=== PATIENT | male | born 1955 | race Caucasian/White ===

== ENCOUNTER → 2020-02-16 | Outpatient (CLI) | payer OTHER, MEDICAID ==
[2018-01-05 13:17] VITALS: BP 114/61
[~2020-02-16] MED LIST: ASPI325T11 PO; ASPI81TA50 PO; ATOR40TA59 PO; CYCL10TA2 PO; FLUO20CA20 PO; GABA600T7 PO; LISI-130 PO; LISI-334 PO; MORP-15 PO; OXYC1TAB22 PO
--- NOTE | 2020-02-16 11:27 | KCIC ---
KNEE RIGHT 3V INDICATION: Right knee pain, slipping injury COMPARISON: None. FINDINGS: No acute appearing fracture or malalignment. Bony growth seen overlying the distal femoral diaphysis, incompletely visualized. Patient also appears to have prior external fixation screw lucency through the proximal tibia. Small suprapatellar joint effusion. Bony mineralization is normal for the patient's age. No significant soft tissue abnormality. No radiopaque foreign body. IMPRESSION: 1. No acute appearing fracture or malalignment. 2. Small suprapatellar joint effusion. 3. Bony growth seen overlying the distal femoral diaphysis, incompletely visualized. On the lateral view, there appears to be angulation and changes that may be consistent with remote injury. Correlate for history of prior femoral fracture. Patient also appears to have prior external fixation screw lucency through the proximal tibia. Electronically signed by: Franklin Mondragon MD (02/16/2020 11:25 AM) [id number]
== END | disposition home or self-care (01) ==
LOC: KCIC 10:19
PROVIDERS: ATTEND Family Medicine
DX: M17.11 Unilateral primary osteoarthritis, right knee (principal); M25.461 Effusion, right knee
CPT/HCPCS: 73562

== ENCOUNTER → 2021-12-20 | Outpatient (CLI) | payer OTHER, MEDICAID ==
[2018-01-05 13:17] VITALS: BP 114/61
[~2021-12-20] MED LIST changes: +CYCL10TA19 PO; -CYCL10TA2 PO; -FLUO20CA20 PO; +FLUO20CA22 PO; -LISI-334 PO; +LISI20TA18 PO
--- NOTE | 2021-12-20 12:35 | KCIC ---
AP and Lateral Views of the Chest 12/20/2021 10:55 AM Indication: 1-2 months of cough. Comparison: Chest radiograph January 03, 2018 Findings: Lung volumes are low augmenting the cardiomediastinal silhouette and pulmonary vasculature. Allowing for this no pneumothorax, effusion, or focal infiltrate is seen. Heart size is within radha l limits. Degenerative changes of the thoracic spine without evidence of acute osseous abnormality. IMPRESSION: Low lung volumes. Otherwise no acute cardiopulmonary process is identified. Electronically signed by: Marck Ramos MD (12/20/2021 12:32 PM) [id number]
== END ==
LOC: KCIC 10:51
PROVIDERS: ATTEND Family Medicine
DX: R05.9 Cough, unspecified (principal); M47.814 Spondylosis without myelopathy or radiculopathy, thoracic region
CPT/HCPCS: 71046

== ENCOUNTER 2022-01-11 11:53 | Emergency (ER) | payer OTHER, MEDICAID ==
[~2022-01-11] VITALS: Ht 185.4 cm; Wt 136.2 kg
[2022-01-11 12:07] VITALS: BP 195/84
--- NOTE | 2022-01-11 12:23 | ED.ADGEN ---
Past Medical History Past Medical History: High Cholesterol, Hypertension, TIA Past Surgical History: Knee Replacement Smoking Status: Never Smoker Alcohol Use: Occasionally Drug Use: None General Adult EDM: Chief Complaint: BACK PAIN OR INJURY HPI: HPI: Patient is a 66-year-old male who arrives ambulatory to the emergency department complaining of lower neck and upper back pain. Patient reportedly fell last Sunday and sustained a small injury to his left lower extremity. He was evaluated and treated at another hospital for this. Patient states initially he fell and landed awkwardly on his back. Patient reports initially he did not think anything of this. Patient states however over the past several days his pain has gotten worse. He reports pain in his lower neck in the midline as well as upper back. Patient already has a history of degenerative disc disease in his back and has concerns he may have injured this even further. Patient also states he has pain in his back at the left side from his fall as well. He states this is very noticeable whenever he takes a deep breath or moves. He denies fevers or cough. He further denies chest pain. Additionally he denies any changes level consciousness. He is awake, alert and nontoxic-appearing. Review of Systems: Review of Systems: Constitutional: Denies fever or chills. [] Eyes: Denies change in visual acuity. [] HENT: Denies nasal congestion or sore throat. [] Respiratory: Denies cough or shortness of breath. [] Cardiovascular: Denies chest pain or edema. [] GI: Denies abdominal pain, nausea, vomiting, bloody stools or diarrhea. [] : Denies dysuria. [] Musculoskeletal: Reports neck and back pain. Denies joint pain. [] Integument: Reports laceration. Denies rash. [] Neurologic: Denies headache, focal weakness or sensory changes. [] Endocrine: Denies polyuria or polydipsia. [] Lymphatic: Denies swollen glands. [] Psychiatric: Denies depression or anxiety. [] Family History: Family History: Noncontributory Current Medications: Current Medications Medications (Trade) Dose Ordered Sig/Melonie Start Time Stop Time Status Last Admin Dose Admin Ibuprofen (Motrin) 600 mg 1X ONCE 01/11/22 13:30 01/11/22 13:31 DC 01/11/22 13:27 600 MG Allergies: Allergies: Allergies Coded Allergies Type Severity Reaction Last Updated Verified Penicillins Allergy Severe Anaphylaxis 01/04/18 Yes Physical Exam: PE: Constitutional: Well developed, well nourished, no acute distress, non-toxic appearance. [] HENT: Normocephalic, atraumatic, bilateral external ears normal, oropharynx moist, no oral exudates, nose normal. [] Eyes: PERRLA, EOMI, conjunctiva normal, no discharge. [] Neck: Tenderness palpation in the midline at the cervicothoracic junction. Normal range of motion, supple, no stridor. [] Cardiovascular:Heart rate regular rhythm, no murmur [] Lungs & Thorax: Bilateral breath sounds clear to auscultation [] Abdomen: Bowel sounds normal, soft, no tenderness, no masses, no pulsatile masses. [] Skin: Warm, dry, no erythema, no rash. [] Back: Tenderness palpation of the upper thoracic musculature as well as spine. No CVA tenderness. [] Extremities: Healing laceration of left lower extremity. No tenderness, no cyanosis, no clubbing, ROM intact, no edema. [] Neurologic: Alert and oriented X 3, normal motor function, normal sensory function, no focal deficits noted. [] Psychologic: Affect normal, judgement normal, mood normal. [] Current Patient Data: Vital Signs: Vital Signs Date Time Temp Pulse Resp B/P (MAP) Pulse Ox O2 Delivery O2 Flow Rate FiO2 01/11/22 12:07 98.3 79 20 195/84 (121) 100 Room Air 98.3 EKG: EKG: [] Heart Score: C/O Chest Pain: No Risk Factors: Risk Factors: DM, Current or recent (<one month) smoker, HTN, HLP, family h istory of CAD, obesity. Risk Scores: Score 0 - 3: 2.5% MACE over next 6 weeks - Discharge Home Score 4 - 6: 20.3% MACE over next 6 weeks - Admit for Clinical Observation Score 7 - 10: 72.7% MACE over next 6 weeks - Early Invasive Strategies Radiology/Procedures: Radiology/Procedures: [][facility] [address] [place] [address] IMAGING REPORT Signed PATIENT: JENNIFER MORGAN ACCOUNT: [id number] : 1955 LOCATION: ER AGE: 66 SEX: M EXAM STATUS: REG ER ORD. PHYSICIAN: NAVDEEP WEATHERS DO REASON: Pain after fall PROCEDURE: CT CHEST WO CONTRAST CT scan of the chest without contrast 01/11/2022 CLINICAL HISTORY: Chest pain post fall. TECHNIQUE: Unenhanced, contiguous, 0.625 mm axial sections were obtained through the chest and upper abdomen. 5 mm reconstructed axial and 5 and 3 mm sagittal and coronal reconstructed images were obtained. One or more of the following individualized dose reduction techniques were utilized for this study: 1. Automated exposure control. 2. Adjustment of the mA and/or kV according to patient size. 3. Use of iterative reconstruction technique. FINDINGS: Comparison is made to PA and lateral chest radiographs dated 12/20/2021. Atherosclerotic calcification of the thoracic aorta and its branches is seen. The thoracic aorta tapers normally. The heart is mildly enlarged. Scattered coronary artery calcifications are seen. No mediastinal hematoma is noted. No hilar, mediastinal or axillary lymphadenopathy is seen. Dependent subsegmental atelectasis is seen involving both lungs. No area of consolidation is noted. No pneumothorax or pleural effusion is seen. Several small nodular opacities are seen involving both lungs which measure 1 to 2 mm in size. They likely represent granulomas. No concerning pulmonary nodule is seen. Images through the upper abdomen demonstrate atherosclerotic calcification of the abdominal aorta. Degenerative changes are seen involving the thoracic spine. The osseous structures are intact. IMPRESSION: No acute abnormality is seen. Electronically signed by: Satinder Rubi MD (01/11/2022 1:34 PM) [id number] [facility] [address] [place] [address] IMAGING REPORT Signed PATIENT: JENNIFER MORGAN ACCOUNT: [id number] : 1955 LOCATION: ER AGE: 66 SEX: M EXAM STATUS: REG ER ORD. PHYSICIAN: NAVDEEP WEATHERS DO REASON: Pain after fall PROCEDURE: CT THORACIC SPINE WO CONTRAST EXAMINATION: CT THORACIC SPINE WO, 01/11/2022 12:50 PM CLINICAL INDICATION: Pain after fall COMPARISON: Chest radiograph 12/20/2021 TECHNIQUE: Helical CT imaging performed of the thoracic spine without the use of intravenous contrast. Sagittal and coronal reformats were obtained. One or more of the following individualized dose reduction techniques were utilized for this examination: 1. Automated exposure control 2. Adjustment of the mA and/or kV according to patient size 3. Use of iterative reconstruction technique. FINDINGS: There is no acute fracture. Alignment is normal. There is mild degenerative disc disease with degenerative endplate changes and bridging lateral osteophytes. This is greatest at T5-T6 through T9-T10. There is no bony canal or foraminal narrowing. The visualized portion of the chest is unremarkable. There is mild calcified atherosclerosis in the aorta. Paraspinous musculature is normal. IMPRESSION: No acute osseous abnormality Electronically signed by: Sumaya Camilo MD (01/11/2022 1:51 PM) [id number] DICTATED and SIGNED BY: SUMAYA CAMILO MD DATE: 01/11/22 1339 [facility] [address] [place] [address] IMAGING REPORT Signed PATIENT: JENNIFER MORGAN ACCOUNT: [id number] : 1955 LOCATION: ER AGE: 66 SEX: M EXAM STATUS: REG ER ORD. PHYSICIAN: NAVDEEP WEATHERS DO REASON: Pain after fall PROCEDURE: CT CERVICAL SPINE WO CONTRAST CT scan of the cervical spine without contrast 01/11/2022 Clinical history: Neck pain post fall. Technique: Unenhanced, contiguous, 0.625 mm axial sections were obtained through the cervical spine. 3 mm reconstructed axial and 3 mm coronal and sagittal reconstructed images were obtained. One or more of the following individualized dose reduction techniques were utilized for this study: 1. Automated exposure control. 2. Adjustment of the mA and/or kV according to patient size. 3. Use of iterative reconstruction technique. Findings: Sagittal and coronal reconstructed images demonstrate slight reversal of the normal cervical lordosis. Degenerative changes consisting of disc space narrowing, vertebral endplate sclerosis and mild to moderate anterior and posterior vertebral body osteophyte formation are seen involving the C5-6 and C6-7 disc spaces. Atherosclerotic calcification is seen in the region of the carotid bifurcations. No fracture or subluxation is of the cervical vertebrae is seen. Degenerative changes are seen involving the uncovertebral and facet joints throughout the cervical disc spaces. Impression: No fracture or subluxation of the cervical vertebra is identified. Electronically signed by: Satinder Rubi MD (01/11/2022 1:52 PM) [id number] DICTATED and SIGNED BY: SATINDER RUBI MD DATE: 01/11/22 [id number] DICTATED and SIGNED BY: SATINDER RUBI MD DATE: 01/11/22 0592 Course & Med Decision Making: Course & Med Decision Making Pertinent Labs and Imaging studies reviewed. (See chart for details) Upon arrival the patient was taken to fast-track room D where he was interviewed and examined. Patient exhibited tenderness of the cervical thoracic region of the spine without tenderness to palpation anywhere else in his back. I did order CT imaging to assess for any spinal injury of the neck or upper back. CT of the chest was ordered as well and only chronic findings were observed. Despite this the patient has been reevaluated and is without any neurological disability. I have advised that he follow-up with his primary care physician in 1 week should he have continued pain. Should he develop any acute motor or sensory deficit, he has been advised to return to the emergency department. The patient understands and has agreed to do so. Is nontoxic-appearing and stable for discharge. [] Mauricio Disclaimer: Mauricio Disclaimer: This electronic medical record was generated, in whole or in part, using a voice recognition dictation system. Departure Departure Impression: Primary Impression: Sprain of ligament of cervicothoracic region of spine Additional Impression: History of fall Disposition: 01 HOME / SELF CARE / HOMELESS Condition: STABLE Referrals: PHILLIP KING MD (PCP) Patient Instructions: Cervical Strain and Sprain with [facility], Thoracic Strain Additional Instructions: Follow-up with your primary care physician in 1 week Scripts Cyclobenzaprine Hcl (CYCLOBENZAPRINE HCL) 5 Mg Tablet 1 TAB PO TID for 5 Days, #15 TAB Prov: NAVDEEP WEATHERS DO 01/11/22 Problem Qualifiers NAVDEEP WEATHERS DO January 11, 2022 12:23
[2022-01-11] MEDS ORDERED: IBUPROFEN 200 MG TABLET. PO ONE (13:30)
--- NOTE | 2022-01-11 13:36 | RAD ---
CT scan of the chest without contrast 01/11/2022 CLINICAL HISTORY: Chest pain post fall. TECHNIQUE: Unenhanced, contiguous, 0.625 mm axial sections were obtained through the chest and upper abdomen. 5 mm reconstructed axial and 5 and 3 mm sagittal and coronal reconstructed images were obtai andie. One or more of the following individualized dose reduction techniques were utilized for this study: 1. Automated exposure control. 2. Adjustment of the mA and/or kV according to patient size. 3. Use of iterative reconstruction technique. FINDINGS: Comparison is made to PA and lateral chest radiographs dated 12/20/2021. Atherosclerotic calcification of the thoracic aorta and its branches is seen. The thoracic aorta tape rs normally. The heart is mildly enlarged. Scattered coronary artery calcifications are seen. No medi astinal hematoma is noted. No hilar, mediastinal or axillary lymphadenopathy is seen. Dependent subsegmental atelectasis is seen involving both lungs. No area of consolidation is noted. N o pneumothorax or pleural effusion is seen. Several small nodular opacities are seen involving both l ungs which measure 1 to 2 mm in size. They likely represent granulomas. No concerning pulmonary nodul e is seen. Images through the upper abdomen demonstrate atherosclerotic calcification of the abdominal aorta. De generative changes are seen involving the thoracic spine. The osseous structures are intact. IMPRESSION: No acute abnormality is seen. Electronically signed by: Satinder Rubi MD (01/11/2022 1:34 PM) [id number]
--- NOTE | 2022-01-11 13:54 | RAD ---
EXAMINATION: CT THORACIC SPINE WO, 01/11/2022 12:50 PM CLINICAL INDICATION: Pain after fall COMPARISON: Chest radiograph 12/20/2021 TECHNIQUE: Helical CT imaging performed of the thoracic spine without the use of intravenous contrast . Sagittal and coronal reformats were obtained. One or more of the following individualized dose reduction techniques were utilized for this examinat ion: 1. Automated exposure control 2. Adjustment of the mA and/or kV according to patient size 3. Use of iterative reconstruction technique. FINDINGS: There is no acute fracture. Alignment is normal. There is mild degenerative disc disease wi th degenerative endplate changes and bridging lateral osteophytes. This is greatest at T5-T6 through T9-T10. There is no bony canal or foraminal narrowing. The visualized portion of the chest is unremar kable. There is mild calcified atherosclerosis in the aorta. Paraspinous musculature is normal. IMPRESSION: No acute osseous abnormality Electronically signed by: Sumaya Camilo MD (01/11/2022 1:51 PM) [id number]
--- NOTE | 2022-01-11 13:55 | RAD ---
CT scan of the cervical spine without contrast 01/11/2022 Clinical history: Neck pain post fall. Technique: Unenhanced, contiguous, 0.625 mm axial sections were obtained through the cervical spine. 3 mm reconstructed axial and 3 mm coronal and sagittal reconstructed images were obtained. One or more of the following individualized dose reduction techniques were utilized for this study: 1. Automated exposure control. 2. Adjustment of the mA and/or kV according to patient size. 3. Use of iterative reconstruction technique. Findings: Sagittal and coronal reconstructed images demonstrate slight reversal of the normal cervica l lordosis. Degenerative changes consisting of disc space narrowing, vertebral endplate sclerosis and mild to moderate anterior and posterior vertebral body osteophyte formation are seen involving the C 5-6 and C6-7 disc spaces. Atherosclerotic calcification is seen in the region of the carotid bifurcat ions. No fracture or subluxation is of the cervical vertebrae is seen. Degenerative changes are seen involv ing the uncovertebral and facet joints throughout the cervical disc spaces. Impression: No fracture or subluxation of the cervical vertebra is identified. Electronically signed by: Satinder Rubi MD (01/11/2022 1:52 PM) [id number]
[2022-01-11] MEDS ORDERED: CYCL5TAB PO (14:07)
== END 2022-01-11 14:10 | disposition home or self-care (01) ==
LOC: ER 11:53
DX: S23.3XXA Sprain of ligaments of thoracic spine, initial encounter (principal); M54.50 Low back pain, unspecified; E78.00 Pure hypercholesterolemia, unspecified; I10 Essential (primary) hypertension; Z86.73 Personal history of transient ischemic attack (TIA), and cerebral infarction without residual deficits; Z88.0 Allergy status to penicillin; W18.39XA Other fall on same level, initial encounter; Y93.89 Activity, other specified; Y92.89 Other specified places as the place of occurrence of the external cause; Y99.8 Other external cause status
CPT/HCPCS: 71250; 72125; 72128; 99284-25